=== PATIENT | male | born 1940 | race Caucasian/White ===

== ENCOUNTER 2018-11-05 08:56 | Inpatient (IN) | payer MEDICARE, BC ==
[~2018-11-05] VITALS: Ht 177.8 cm; Wt 67.0 kg
[2018-11-05] VITALS (475 sets, daily range): BP systolic 134–168; BP diastolic 64–76; PULSE 52–57; TEMP 97.2–97.8; O2SAT 87–100
[~2018-11-05 08:56] MED LIST: AMBIEN 5MG TABLE5 MG PO; ASPIRIN E.C. 8181 MG PO; IRON 27 MG PO; LANTUS SOLOS100 U/ML SQ; LASIX 20MG TABL20 MG PO; LOPRESSOR 225 MG/TAB PO; MONOPRIL20 MG PO; MUCINEX 60600 MG/TA1 PO; NITROSTAT0.4 MG/TAB SL; PACERONE200 MG PO; PREDNISONE20 MG PO; TYLENOL 500MG500 MG PO; ZOCOR 80MG80 MG PO
--- NOTE | 2018-11-05 09:25 | NUR ---
Kirill Oneil, MILLING SUPERVISOR into see patient at this time.
--- NOTE | 2018-11-05 09:30 | NUR ---
Kirill Oneil CRNA notified of patient's FSBS at this time.
--- NOTE | 2018-11-05 09:45 | NUR ---
Kirill Oneil, SALES PLANNING COORDINATOR into see patient at this time.
[2018-11-05 10:04] LABS: CALCIUM 9.4 mg/dL (8.4-10.2); CREATININE, serum 1.33 (0.66-1.25); POTASSIUM 4.7 mmol/L (3.4-5.0)
--- NOTE | 2018-11-05 10:05 | NUR ---
Lab called critical result for blood glucose 545 at this time. Kirill Oneil CRNA notified and he would like to cancel patient's surgery today. Will notify Dr Felix.
--- NOTE | 2018-11-05 10:20 | NUR ---
Dr Felix notified staff that he will be here in approximately 15 minutes to see the patient. Patient is stable and resting comfortably in bed with call light on lap.
--- NOTE | 2018-11-05 10:40 | NUR ---
Family into see patient at this time.
--- NOTE | 2018-11-05 10:50 | NUR ---
Dr Felix into see patient at this time.
--- NOTE | 2018-11-05 11:15 | NUR ---
Investment Accounting Clerk notified at this time, and report that there are no beds available for patient admissions.
--- NOTE | 2018-11-05 11:30 | NUR ---
Dr Jordan notified and will place orders for patient.
--- NOTE | 2018-11-05 12:00 | NUR ---
Patient resting comfortably in bed with spouse at bedside.
--- NOTE | 2018-11-05 14:09 | NUR ---
Dr Jordan into see patient at this time.
--- NOTE | 2018-11-05 14:50 | NUR ---
Patient report called to ICU nurse at this time.
--- NOTE | 2018-11-05 15:06 | NUR ---
Pt admitted to ICU bed 3 from PACU. Pt arrived via stretcher and placed on monitoring coordinator upon arrival. Vitals stable. Pt denies pain or any other discomfort. Dr. Jordan notified of Pt arrival to unit.
--- NOTE | 2018-11-05 15:10 | NUR ---
Patient transfered to ICU Rm3 via cart with IV intact and without any complications. Patient report and care given to TEETEE Castelan. Patient's family notified via phone. Patient and family thank staff for services.
[2018-11-05 15:58] LABS: MUCOUS Present /lpf; PH 5 (5-8); SQUAMOUS EPITHELIAL None Seen /hpf; URINE APPEARANCE Clear; URINE BACTERIA None Seen /hpf; URINE BILIRUBIN Negative (NEGATIVE); URINE BLOOD 2+ (NEGATIVE); URINE COLOR Yellow; URINE GLUCOSE 3+ (NEGATIVE); URINE KETONE Trace (NEGATIVE); URINE LEUKOCYTE ESTERASE Negative (NEGATIVE); URINE NITRATE Negative (NEGATIVE); URINE PROTEIN(semi-quant) 1+ (NEGATIVE); URINE RBC 0-2 /hpf; URINE UROBILINOGEN Negative (NEGATIVE); URINE WBC None Seen /hpf
[2018-11-05 16:04] LABS: COLLECTION METHOD CLEAN CATCH
[2018-11-05 16:28] LABS: HEMATOCRIT 42.3 % (42.0-52.0); HEMOGLOBIN 14.3 g/dl (13.5-18.0); MEAN CELL VOLUME 92 fl (80.0-100.0); MEAN CORPUSCULAR HEMOGLOBIN 31 pg (27.0-31.0); MEAN CORPUSCULAR HGB CONC 34 g/dl (33.0-37.0); MEAN PLATELET VOLUME 10.5 fl (7.4-10.4); PLATELET COUNT 166 K/mm3 (130-400); RED BLOOD COUNT 4.62 M/mm3 (4.20-5.60); REDCELL DISTRIBUTION WIDTH-CV 13.3 % (11.5-14.5)
[2018-11-05 16:39] LABS: ANION GAP 8 mmol/L (7-16); BLOOD UREA NITROGEN 51 mg/dL (9-20); CALCIUM 8.8 mg/dL (8.4-10.2); CARBON DIOXIDE 27 mmol/L (22-30); CHLORIDE 99 mmol/L (98-107); CREATININE, serum 1.42 (0.66-1.25); GLUCOSE 400 mg/dL (74-106); POTASSIUM 4.4 mmol/L (3.4-5.0); SODIUM 135 mmol/L (137-145)
[2018-11-05 16:42] LABS: C-REACTIVE PROTEIN < 0.5 mg/dL (0.0-0.9)
[2018-11-05 16:55] LABS: LYMPHOCYTE 8 % (20.0-51.0); NEUTROPHILS 90 % (42.0-75.2); PLATELET ESTIMATE NORMAL (NORMAL)
--- NOTE | 2018-11-05 17:04 | NUR ---
Admission assessment complete at this time. Plan of care reviewed at bedside with patient. Addtional time taken to address any other needs or concerns. Vitals stable at this time. Denies pain or any other discomfort at this time. Bed in low position, call light within reach, will continue to monitor.
--- NOTE | 2018-11-05 19:26 | NUR ---
Bedside report given to TEETEE Vasquez.
--- NOTE | 2018-11-05 23:40 | NUR ---
ON HOLD FOR 30 MINS AND WILL RESTART AT 2 UNITS AFTER PER DRIP PROTOCOL.
[2018-11-06] VITALS (606 sets, daily range): BP systolic 120–167; BP diastolic 59–79; PULSE 54–58; TEMP 97.6–98.6; O2SAT 74–99
--- NOTE | 2018-11-06 03:00 | NUR ---
INSULIN DRIP ON HOLD PER PROTOCOL.
--- NOTE | 2018-11-06 05:07 | NUR ---
NO CHANGE, INSULIN STILL ON STANDBY. 3 CONSECUTIVE VALUES AT GOAL WITH NO CHANGE, WILL RECHECK BG AT 0700.
[2018-11-06 05:29] LABS: CALCIUM 8.5 mg/dL (8.4-10.2); CREATININE, serum 1.12 (0.66-1.25); POTASSIUM 3.9 mmol/L (3.4-5.0)
--- NOTE | 2018-11-06 06:53 | NUR ---
RE-STARTED PER PROTOCOL.
--- NOTE | 2018-11-06 12:10 | NUR ---
Pt to OR
--- NOTE | 2018-11-06 12:53 | NUR ---
SW attended clinical rounds to disucss discharge planning. Patient will likely discharge today after his procedure. Patient lives independently at home with his . Patient's PCP is Dr Ok Morris and he obtains prescriptions from [facility]. Patient denies difficulties obtianing medications or paying for them. Patient reports he uses a cane occasionally but no other DME is used. Patient does not use any home health services or outpatient therpaies. Patient reports indepenence with all ADLs. Patient does have advanced directives. SW does not anticipate any discharge needs.
[2018-11-06] MEDS ORDERED: ULTRAM 50MG TAB50 MG PO (13:40)
--- NOTE | 2018-11-06 14:00 | NUR ---
Pt AAOx4, RASS -1 upon arrival and improving to RASS 0 after 15min of being on unit. Pt arrived back to unit on ICU bed with RN NEW GRAD and ALVARO Ortiz - bedside report recieved. No complaints of pain from pt. No visible puncure site and no dressing in place on right side of neck. Pt denies nausea, respirations equal and unlabored. PO challenge performed without difficulty, pt voided 350mL of yellow clear urine, and ambulated unassisted around room and into [facility] without difficulty
[2018-11-06] MEDS ORDERED: NOVOLOG 100U100 U/M1 SQ (14:42)
== END 2018-11-06 15:00 | disposition home or self-care (01) | DRG 629 ==
LOC: SDCO 08:56 → ICU 15:37
PROVIDERS: Nurse Anesthetist, Certified Registered; Surgery; ADMIT Hospitalist
PROC: 03BS0ZX Excision of Right Temporal Artery, Open Approach, Diagnostic (ICD-10-PCS; principal; 2018-11-06 12:00)
DX: E11.65 Type 2 diabetes mellitus with hyperglycemia (principal); N17.9 Acute kidney failure, unspecified; M31.6 Other giant cell arteritis; I50.9 Heart failure, unspecified; I11.0 Hypertensive heart disease with heart failure; E78.5 Hyperlipidemia, unspecified; E86.0 Dehydration; Z95.1 Presence of aortocoronary bypass graft; Z85.51 Personal history of malignant neoplasm of bladder; Z85.46 Personal history of malignant neoplasm of prostate; Z88.8 Allergy status to other drugs, medicaments and biological substances; Z95.2 Presence of prosthetic heart valve
CPT/HCPCS: OP; 99223; 99232-AI; J0690; J1815; J2250; J2704; J3010; J7030; J7512

== ENCOUNTER → 2020-04-13 | Outpatient (CLI) | payer MEDICARE, BC ==
[~2020-04-13] MED LIST changes: +NOVOLOG 100U100 U/M1 SQ; +ULTRAM 50MG TAB50 MG PO
== END ==
LOC: COL.PUL 11:03
DX: T46.2X1A Poisoning by other antidysrhythmic drugs, accidental (unintentional), initial encounter (principal); Z87.891 Personal history of nicotine dependence